=== PATIENT | female | born 1945 | race Caucasian/White ===

== ENCOUNTER → 2023-06-11 10:57 | Outpatient (CLI) | payer MEDICARE, OTHER, SELFPAY ==
--- NOTE | 2023-06-11 09:25 | DI.RAD_ITS ---
Exam(s) XR FOOT LT COMPLETE EXAM: XR FOOT LT COMPLETE CLINICAL HISTORY: Left foot pain, degenerative joint disease, M19.072. TECHNIQUE: 2D digital imaging was performed. Three views. COMPARISON: No exams were available for comparison FINDINGS: BONES: No acute fracture is present. No bony destructive lesion is seen. JOINTS: No dislocation present. First metatarsal varus and hallux valgus. Severe degenerative olvera ges at tarsal metatarsal joints. There are mild multiple erosions on both sides of the joint, greate st at the 1st tarsal metatarsal joint. Degenerative changes seen to a lesser extent at the calcaneal cuboid and talonavicular joints. Minimal degenerative changes 1st MTP joint. SOFT TISSUE: Normal. IMPRESSION: Severe degenerative changes tarsal metatarsal joints. Hallux valgus. DATA REPOSITORY: RADIATION DOSE DELIVERED:
--- NOTE | 2023-06-11 09:25 | DI.RAD_ITS ---
Exam(s) XR FOOT RT COMPLETE EXAM: XR FOOT RT COMPLETE CLINICAL HISTORY: Pain in right foot, degenerative joint disease, M19.071. TECHNIQUE: 2D digital imaging was performed. Three views. COMPARISON: CR XR FOOT LT COMPLETE from 06/11/2023 FINDINGS: BONES: No acute fracture is present. No bony destructive lesion is seen. JOINTS: No dislocation present. First metatarsal varus and hallux valgus. Hammertoe deformities. D egenerative changes tarsal metatarsal joints. Degenerative changes calcaneal cuboid joint. SOFT TISSUE: Mild calcification noted in the plantar fascia. IMPRESSION: Hallux valgus, hammertoe deformities and degenerative changes. DATA REPOSITORY: RADIATION DOSE DELIVERED:
== END ==
PROVIDERS: PCP Nurse Practitioner Family; Visit Provider Podiatrist
DX: M19.071 Primary osteoarthritis, right ankle and foot (principal); M19.072 Primary osteoarthritis, left ankle and foot
CPT/HCPCS: 73630

== ENCOUNTER → 2023-07-09 08:59 | Outpatient (BNVA) | payer MEDICARE, OTHER, SELFPAY | PROVIDERS: PCP Nurse Practitioner Family; Referring Provider Nurse Practitioner Family; Visit Provider Podiatrist | DX: M72.2 Plantar fascial fibromatosis (principal); M19.072 Primary osteoarthritis, left ankle and foot; M19.071 Primary osteoarthritis, right ankle and foot; M67.01 Short Achilles tendon (acquired), right ankle; M67.02 Short Achilles tendon (acquired), left ankle; L84 Corns and callosities | CPT/HCPCS: 20550; J1040 ==

== ENCOUNTER → 2023-10-08 08:09 | Outpatient (BNVA) | payer MEDICARE, OTHER, SELFPAY | PROVIDERS: PCP Nurse Practitioner Family; Referring Provider Nurse Practitioner Family; Visit Provider Podiatrist | DX: M72.2 Plantar fascial fibromatosis; M19.072 Primary osteoarthritis, left ankle and foot; M19.071 Primary osteoarthritis, right ankle and foot; M67.01 Short Achilles tendon (acquired), right ankle; M67.02 Short Achilles tendon (acquired), left ankle; L84 Corns and callosities | CPT/HCPCS: 20550; J0702 ==

== ENCOUNTER → 2023-11-27 09:12 | Outpatient (BNVA) | payer MEDICARE, OTHER, SELFPAY | PROVIDERS: PCP Nurse Practitioner Family; Referring Provider Nurse Practitioner Family; Visit Provider Podiatrist | DX: M72.2 Plantar fascial fibromatosis (principal); M67.01 Short Achilles tendon (acquired), right ankle; M67.02 Short Achilles tendon (acquired), left ankle; M79.672 Pain in left foot; M19.072 Primary osteoarthritis, left ankle and foot; M19.071 Primary osteoarthritis, right ankle and foot; L84 Corns and callosities; M79.671 Pain in right foot | CPT/HCPCS: 20550; J0702 ==

== ENCOUNTER → 2024-01-02 13:00 | Outpatient (BNVA) | payer MEDICARE, OTHER, SELFPAY | PROVIDERS: PCP Nurse Practitioner Family; Referring Provider Nurse Practitioner Family; Visit Provider Podiatrist | DX: M72.2 Plantar fascial fibromatosis (principal); M67.01 Short Achilles tendon (acquired), right ankle; M67.02 Short Achilles tendon (acquired), left ankle; Z09 Encounter for follow-up examination after completed treatment for conditions other than malignant neoplasm; M79.673 Pain in unspecified foot; M19.072 Primary osteoarthritis, left ankle and foot; M19.071 Primary osteoarthritis, right ankle and foot; M62.569 Muscle wasting and atrophy, not elsewhere classified, unspecified lower leg; L84 Corns and callosities | CPT/HCPCS: 20550; J0702 ==

== ENCOUNTER → 2024-01-31 14:13 | Outpatient (BNVA) | payer MEDICARE, OTHER, SELFPAY | PROVIDERS: PCP Nurse Practitioner Family; Referring Provider Nurse Practitioner Family; Visit Provider Podiatrist | DX: M72.2 Plantar fascial fibromatosis (principal); M67.01 Short Achilles tendon (acquired), right ankle; M67.02 Short Achilles tendon (acquired), left ankle; M19.072 Primary osteoarthritis, left ankle and foot; M19.071 Primary osteoarthritis, right ankle and foot; M62.561 Muscle wasting and atrophy, not elsewhere classified, right lower leg; M62.562 Muscle wasting and atrophy, not elsewhere classified, left lower leg; L84 Corns and callosities; M79.674 Pain in right toe(s); M79.675 Pain in left toe(s) | CPT/HCPCS: 99214 ==

== ENCOUNTER → 2024-02-18 02:10 | Outpatient (CLI) | payer MEDICARE, OTHER, SELFPAY ==
--- NOTE | 2024-02-18 07:45 | DI.MRI_ITS ---
Exam(s) MR LOWER JOINT RT WO EXAM: MR LOWER JOINT RT WO CLINICAL HISTORY: ?Plantar fascia tear,bilat achilles contracture,m76.01 TECHNIQUE: Multiplanar multisequence MRI was performed without intravenous contrast. COMPARISON: CR XR FOOT RT COMPLETE from 06/11/2023 FINDINGS: BONES/JOINTS: No fracture or contusion pattern. No bone lesions identified. The talar dome is smooth. Degenerative changes are seen throughout the ankle and the hindfoot characterized by subchondral roberto carlos ma and subchondral cysts in addition to joint space narrowing. Findings are seen in the tibial talar joint, the calcaneocuboid joint, the tarsometatarsal joints and the articulation with the navicular and the cuneiform is. There is a small effusion in the tibial talar joint. LIGAMENTS: There is discontinuity of the anterior tibial fibular ligament. The calcaneofibular ligam ent and the posterior tibial fibular ligament appear intact. The talofibular ligaments are intact. The deltoid ligament is intact. The syndesmosis is unremarkable. Sinus tarsi is normal. MUSCULOTENDINOUS STRUCTURES: Achilles tendon: Unremarkable. There is a small amount of fluid in the retrocalcaneal bursa. Plantar fascia: Unremarkable. There is an artifact seen within the plantar fascia medially (series 60 01, image 20). Anterior Extensor tendons: Unremarkable. Posterior Tibialis: Unremarkable. Flexor Digitorum longus: Unremarkable. Flexor Hallucis longus: Unremarkable. Peroneus longus: Unremarkable. Peroneus brevis:Unremarkable. SOFT TISSUES: Unremarkable. OTHER FINDINGS: None. IMPRESSION: 1. No evidence of a Achilles tendon tear. 2. The plantar fascia is intact. There is an artifact seen in the medial aspect of the plantar fasci a (series 6001, image 20). Please correlate with any foreign body or surgical history. 3. Discontinuity of the anterior tibial fibular ligament suspicious for tear. 4. Degenerative changes seen in the foot and ankle. 5. No evidence of a tendon tear. DATA REPOSITORY:
--- NOTE | 2024-02-18 07:45 | DI.MRI_ITS ---
Exam(s) MR LOWER JOINT LT WO EXAM: MR LOWER JOINT LT WO CLINICAL HISTORY: ? Plantar fascia tear,bilat achilles tendon contracture,M72.2,m67.02 TECHNIQUE: Multiplanar multisequence MRI was performed without intravenous contrast. COMPARISON: CR XR FOOT LT COMPLETE from 06/11/2023 FINDINGS: SKIN: There is soft tissue edema around the ankle. No distinct fluid collection. No obvious ulcer n or subcutaneous tract. No evidence of ulcer nor subcutaneous tract. BONES/JOINTS: There are advanced destructive/erosive arthritic changes the midfoot involving all of t he tarsometatarsal joints there is bone edema evident in the cuboid bone and all the cuneiform bones as well as metatarsals. There is a focus of subarticular signal abnormality in the medial aspect of the talar dome with surro unding bone edema. Suspicious for osteochondral defect versus degenerative subarticular cysts. LIGAMENTS: The anterior and posterior tibiofibular and calcaneofibular ligaments are intact. The ante rior and posterior talofibular ligaments are intact. The deltoid ligament is intact. SINUS TARSI: There is no loss of the normal fat signal in this space. Interosseous ligament is intac t. There is no evidence of sinus tarsi ganglion cyst. ANTEROLATERAL GUTTER:There is no abnormal signal/abnormal tissue in this space. MUSCULOTENDINOUS STRUCTURES: Achilles tendon: Unremarkable. No evidence of tear nor tendinitis/tendinosis. Plantar fascia: Unremarkable. No evidence of tear, abnormal thickening, nor abnormal nodularity. Anterior Extensor tendons: Unremarkable. Medial Tendons: Posterior Tibialis: Unremarkable. No tear or tenosynovitis evident. Flexor Digitorum longus: Unremarkable. No tear or tenosynovitis evident. Flexor Hallicus longus: Unremarkable. No tear or tenosynovitis evident. Lateral Tendons: Peroneus longus: No tear. Mild tenosynovitis Peroneus brevis:Unremarkable. No tear nor tenosynovitis evident. IMPRESSION: 1. There is advanced erosive arthritic change throughout the articulations of the midfoot, involving all of the tarsometatarsal joints, as evident on the prior plain film images of 06/11/2023. Most pro bably consistent with chronic inflammatory arthritis 2. Abnormality in the medial aspect of the talar dome consistent with degenerative subarticular cysts versus possible developing osteochondral defect. 3. No significant findings in the Achilles tendon and plantar fascia, as per request. DATA REPOSITORY:
--- NOTE | 2024-02-18 20:00 | DI.VRAD_ITS ---
PROCEDURE INFORMATION: Exam: MR Left Lower Extremity Joint Without Contrast; Ankle Exam date and time: 02/18/2024 1:12 PM Age: 79 years old Clinical indication: Other: ? Plantar fascia tear, bilat achilles tendon contracture TECHNIQUE: Imaging protocol: Magnetic resonance imaging of the left lower extremity without contrast. Exam focused on the ankle. COMPARISON: CR XR FOOT LT COMPLETE 06/11/2023 9:16 AM FINDINGS: Bones/joints: Severe erosive/destructive arthritic changes again noted throughout the midfoot with associated marrow edema adjacent tarsal bones proximal metatarsals. 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 LIGAMENTS: Distal tibiofibular syndesmosis: Unremarkable. No tear. Anterior talofibular ligament: Unremarkable. No tear. Posterior talofibular ligament: Unremarkable. No tear. Calcaneofibular ligament: Unremarkable. No tear. Deltoid ligament complex: Unremarkable. No tear. TENDONS: Flexor tendons of foot: Unremarkable as visualized. Tibialis posterior tendon: Unremarkable as visualized. Peroneal tendons: Unremarkable as visualized. Extensor tendons of foot: Unremarkable as visualized. Tibialis anterior tendon: Unremarkable as visualized. Achilles tendon: Unremarkable as visualized. Tarsal canal (Sinus tarsi): Unremarkable. Normal signal of the fat. Tarsal tunnel: Unremarkable. Soft tissues: Mild diffuse soft tissue edema about the ankle and foot. No loculated soft tissue fluid collections. Plantar fascia: Plantar fascia is unremarkable. IMPRESSION: 1. 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 Ankle joint is otherwise unremarkable 2. Persistent severe destructive/erosive arthritic changes throughout the midfoot as seen on prior plain film. Differential diagnosis would include sequela of prior Lisfranc injury, neuropathic joint or chronic infectious/inflammatory arthritis. Dictated and Authenticated by: Sunil Grimaldo MD. Ordering:ROHAN Patel MD
== END ==
PROVIDERS: PCP Nurse Practitioner Family; Visit Provider Podiatrist
DX: M72.2 Plantar fascial fibromatosis (principal); M67.01 Short Achilles tendon (acquired), right ankle; M67.02 Short Achilles tendon (acquired), left ankle
CPT/HCPCS: 73721

== ENCOUNTER → 2024-04-24 11:03 | Outpatient (BNVA) | payer MEDICARE, OTHER, SELFPAY | PROVIDERS: PCP Family Medicine; Referring Provider Family Medicine; Visit Provider Podiatrist | DX: M72.2 Plantar fascial fibromatosis (principal); M67.01 Short Achilles tendon (acquired), right ankle; M67.02 Short Achilles tendon (acquired), left ankle; M19.071 Primary osteoarthritis, right ankle and foot; M19.072 Primary osteoarthritis, left ankle and foot; M62.561 Muscle wasting and atrophy, not elsewhere classified, right lower leg; M62.562 Muscle wasting and atrophy, not elsewhere classified, left lower leg; L84 Corns and callosities | CPT/HCPCS: 20550; J0702; J1100 ==